=== PATIENT | female | born 1945 | race Caucasian/White ===

== ENCOUNTER 2016-07-20 11:28 | Emergency (ER) | payer MEDICARE, OTHER ==
[2016-07-20 11:42] VITALS: TEMP 98.3; BMI 39.2
[2016-07-20 11:54] LABS: AUTOMATED BASOPHIL 0.6 % (0-2); AUTOMATED MONOCYTE 8.6 % (3-10); AUTOMATED NEUTROPHIL 66.8 % (45-76); MPV 10.2 fL (7.4-10.4)
[2016-07-20 12:08] LABS: PARTIAL THROMB. TIME 25.4 SEC (22-35); PT-INR 0.9
[2016-07-20 12:14] LABS: BLOOD UREA NITROGEN 23 MG/DL (7-17); CALCIUM 9.5 MG/DL (8.4-10.2); CALCULATED OSMOLALITY 276 MOs/Kg (270-290); CHLORIDE 102 mEq/L (98-107); CPK TOTAL WITH POSSIBLE MB 65 IU/L (30-134); GLUCOSE 123 MG/DL (70-99); SODIUM LEVEL 141 mEq/L (137-146); TOTAL PROTEIN 7.6 G/DL (6.3-8.2)
--- NOTE | 2016-07-20 13:03 | DIRPT ---
CLINICAL DATA: Facial swelling, ulcerative lesion in the mouth. EXAM: CT MAXILLOFACIAL WITHOUT CONTRAST TECHNIQUE: Multidetector CT imaging of the maxillofacial structures was performed. Multiplanar CT image reconstructions were also generated. A small metallic BB was placed on the right mormon in order to reliably differentiate right from left. COMPARISON: None. FINDINGS: The globes are intact. The orbital bettencourt are intact. The orbital floors are intact. The maxilla is intact. The mandible is intact. The zygomatic arches are intact. The nasal septum is midline. There is no nasal bone fracture. The temporomandibular joints are normal. There is bilateral carotid artery atherosclerosis. There is degenerative disc disease with disc height loss at C5-6 and C6-7. There is 2 mm of anterolisthesis of C4 on C5 secondary to facet arthropathy. There is moderate left facet arthropathy at C4-5. The paranasal sinuses are clear. The visualized portions of the mastoid sinuses are well aerated. IMPRESSION: No acute facial abnormality. Electronically Signed By: Nina Del Angel On: 07/20/2016 13:00
[2016-07-20] MEDS ORDERED: LABETALOL 20 MG/4 ML SYRINGE IV ONE (13:07)
--- NOTE | 2016-07-20 13:12 | EDPRACDOC ---
- General Information Chief Complaint: Mouth Lesions Stated Complaint: mouth ulcers Hx of CA Time Seen by Provider: 07/20/16 12:42 Information Source: Patient Mode Of Arrival: Car Home Medications: Home Medications Aspirin [Aspirin EC] 81 mg PO DAILY 03/02/13 Multivitamin [Multiple Vitamins] 1 each PO DAILY 03/02/13 Atorvastatin Calcium 40 mg PO HS 04/29/14 Chlorthalidone 25 mg PO DAILY 04/29/14 Losartan Potassium [Cozaar] 25 mg PO DAILY 09/18/14 Metoprolol Tartrate [Lopressor] 50 mg PO BID 09/18/14 Allergies/Adverse Reactions: Allergies Allergy/AdvReac Type Severity Reaction Status Date / Time codeine Allergy Unknown Unknown Verified 07/20/16 11:37 iodine Allergy Unknown Unknown Verified 07/20/16 11:37 Sulfa (Sulfonamide Allergy Unknown Unknown Verified 07/20/16 11:37 Antibiotics) - History of Present Illness Onset: 4 weeks HPI: PT PRESENTS WITH LEFT FACIAL NUMBNESS, LEFT ORAL ULCER (WHICH HAS BEEN THERE FOR A WHILE). PT STATES SHE HAS A PMH OF CA AND IS WORRIED ABOUT THIS. PT HAS A HEADACHE AND IS HAVING HYPERTENSION. Sore Throat Symptoms: Denies: Pain, Muffled Voice, Hoarse, Secretion Difficulty , Other White Spots Location: Reports: Other (ULCERATION TO LEFT BUCCAL AREA) Relevant History of: Reports: Other (THROAT CA) Pain Severity: Reports: Mild Urinary Output: Normal Oral Intake: Normal Associated Signs and Symptoms: Reports: None ED Past Medical History - History Reviewed Yes Nurses notes reviewed and agree except as marked - Patient Medical History Cardiac History: Reports: Hypertension, Hypercholesterolemia GI/ History: Reports: Gastroesophageal Reflux, Ulcer Musculoskeletal History: Reports: Arthritis, Gout Psychological History: Reports: Anxiety. Denies: Substance Use Disorder Systemic History: Reports: Cancer (lung, throat, cervical) Surgical History: Reports: Hysterectomy, Other (throat surgery for laryngeal cancer) - Family Medical History Reports: Hypertension, Cancer, Stroke, Cardiac Disorders. Denies: Diabetes - Social Medical History Social History: Denies: Substance Use Disorder EDM Review of Systems - Review of Systems ROS Negative Except as Marked: Yes All systems reviewed and were negative except as marked - Physical Exam Constitutional: Alert Oriented to: Time, Person, Place Last recorded Vital Signs: Last Vital Signs Temp 98.3 F 07/20/16 11:37 Pulse 84 07/20/16 11:37 Resp 20 07/20/16 11:37 BP 219/91 H 07/20/16 11:37 Pulse Ox 94 07/20/16 11:37 Oxygen Pulse Oxygen Saturation 94 O2 Device Room Air Oxygen Flow Rate Fraction of Inspired Oxygen ( FIO2) - HEENT Head: Normal ( normocephalic) Eye Exam: Normal (PERRL, EOMI, Sclera white) Oropharynx: Other (ULCERATION TO LEFT BUCCAL AREA) Tympanic Membrane: Normal Nose: No Symptoms Reported (septum midline) Neck: Normal (FROM, trachea at midline) - Respiratory/Cardiovascular Respiratory: Normal - CTA (BBS clear to auscultation without adventitious sounds ) Cardiovascular: Normal (RRR without murmur, gallop or rub) - GI Auscultation: Normal (NABS) Palpation: Normal (Soft,No rebound or guarding, non distended) Tenderness: Non tender Avila's Sign: Negative Rectal Exam: Deferred - Musculoskeletal Back: Normal (Non-Tender) Extremities: Normal (Normal tone, Pulses 2+ No cyanosis or edema, FROM) - Integumentary Skin: Normal, Warm, Dry Lymphatics: Normal (no adenopathy) - Neurologic Memory Impaired: Normal Motor Function: Normal (Normal tone, Pulses 2+ No cyanosis or edema, FROM) Cranial Nerve: Normal (CN II-X11 intact sensation, strength 5/5) Cerebellar: Normal Mood Description: Normal Perception: Normal - Differential Diagnosis Other - Re-evaluation Re-evaluation 1 Re-evaluation Time: 14:25 (BP NOW 186/79, PT STATES SHE STILL HAS A HEADACHE. NO ACUTE DISTRESS NOTED) - Results 07/20/16 11:43 07/20/16 11:43 WBC 12.2 xk/uL (3.8-10.8) H 07/20/16 11:43 RBC 3.97 xM/uL (4.20-5.40) L 07/20/16 11:43 Hgb 12.3 g/dL (12.0-16.0) 07/20/16 11:43 Hct 37.2 % (36-47) 07/20/16 11:43 MCV 94 fL (81-99) 07/20/16 11:43 MCH 31.0 pg (27-32) 07/20/16 11:43 MCHC 33.1 g/dl (33-36) 07/20/16 11:43 RDW 14.3 % (11.5-14.5) 07/20/16 11:43 Plt Count 232 xk/uL (130-400) 07/20/16 11:43 MPV 10.2 fL (7.4-10.4) 07/20/16 11:43 Neut % (Auto) 66.8 % (45-76) 07/20/16 11:43 Lymph % (Auto) 22.0 % (17-44) 07/20/16 11:43 [place]gs % (Auto) 8.6 % (3-10) 07/20/16 11:43 Eos % (Auto) 2.0 % (0-5) 07/20/16 11:43 Baso % (Auto) 0.6 % (0-2) 07/20/16 11:43 Absolute Neuts (auto) 8.05 xk/uL (1.7-8.2) 07/20/16 11:43 Absolute Lymphs (auto) 2.68 xk/uL (0.65-4.75) 07/20/16 11:43 PT 9.6 SEC (9.2-11.2) 07/20/16 11:43 INR 0.9 07/20/16 11:43 APTT 25.4 SEC (22-35) 07/20/16 11:43 Sodium 141 mEq/L (137-146) 07/20/16 11:43 Potassium 4.0 mEq/L (3.5-5.1) 07/20/16 11:43 Chloride 102 mEq/L (98-107) 07/20/16 11:43 Carbon Dioxide 29 mMOL/L (22-33) 07/20/16 11:43 Anion Gap 14 mEq/L (8-16) 07/20/16 11:43 BUN 23 MG/DL (7-17) H 07/20/16 11:43 Creatinine 1.00 MG/DL (0.52-1.04) 07/20/16 11:43 Estimated GFR (MDRD) 55 mL/min (>=60) L 07/20/16 11:43 Glucose 123 MG/DL (70-99) H 07/20/16 11:43 Calculated Osmolality 276 MOs/Kg (270-290) 07/20/16 11:43 Calcium 9.5 MG/DL (8.4-10.2) 07/20/16 11:43 Total Bilirubin 0.8 MG/DL (0.2-1.3) 07/20/16 11:43 AST 23 IU/L (14-36) 07/20/16 11:43 ALT 35 IU/L (9-52) 07/20/16 11:43 Alkaline Phosphatase 142 IU/L (55-165) 07/20/16 11:43 Creatine Kinase 65 IU/L (30-134) 07/20/16 11:43 Troponin I < 0.01 ng/mL (<.04) 07/20/16 11:43 [id number] Pept 120 pg/mL (0-900) 07/20/16 11:43 Total Protein 7.6 G/DL (6.3-8.2) 07/20/16 11:43 Albumin 4.2 G/DL (3.5-5.0) 07/20/16 11:43 Lab Results 07/20/16 07/20/16 07/20/16 11:43 11:43 11:43 WBC 12.2 H RBC 3.97 L Hgb 12.3 Hct 37.2 MCV 94 MCH 31.0 MCHC 33.1 RDW 14.3 Plt Count 232 MPV 10.2 Neut % (Auto) 66.8 Lymph % (Auto) 22.0 Griggs % (Auto) 8.6 Eos % (Auto) 2.0 Baso % (Auto) 0.6 Absolute Neuts (auto) 8.05 Absolute Lymphs (auto) 2.68 PT 9.6 INR 0.9 APTT 25.4 Sodium 141 Potassium 4.0 Chloride 102 Carbon Dioxide 29 Anion Gap 14 BUN 23 H Creatinine 1.00 Estimated GFR (MDRD) 55 L Glucose 123 H Calculated Osmolality 276 Calcium 9.5 Total Bilirubin 0.8 AST 23 ALT 35 Alkaline Phosphatase 142 Creatine Kinase 65 Troponin I < 0.01 Jrn-[id number]-[id number] Pept 120 Total Protein 7.6 Albumin 4.2 - EKG EKG #1 EKG Time: 13:04 -: Yes EKG interpreted by me Rate: bpm: 80 [place]: Normal Rhythm: NSR Block: None Hypertrophy: None ST: Normal Decision Time to Discharge: 14:26 - Departure Disposition: Home Condition: Stable Final Diagnosis: Ulcer of mouth Hypertension Qualifiers: Hypertension type: essential hypertension Qualified Code(s): I10 - Essential ( primary) hypertension Instructions: Chronic Hypertension (ED), Canker Sores (ED) Education/Counseling Given To: Patient Education/Counseling Given Regarding: Diagnosis, Treatment, Prognosis, Follow Up Referrals: Antwan Schaeffer MD [Primary Care Provider] - One Week Noble Ruiz DO [Staff Physician] - One Week Additional Instructions: PLEASE CALL TOMORROW AND MAKE AN APPOINTMENT WITH DR RUIZ (ENT). FOLLOW UP WITH PCP THIS WEEK DUE TO HYPERTENSION. TAKE MEDICATIONS PRESCRIBED. RETURN TO THE ED FOR WORSENING SYMPTOMS OR CONCERNS.
[2016-07-20 13:25] LABS: LEUKOCYTES/URINE NEG (NEGATIVE); NITRITE/URINE NEG (NEGATIVE); URINE OCCULT BLOOD NEG (NEG/TRACE); WBC/URINE 0-2 (0-5)
[2016-07-20] MEDS ORDERED: ONDANSETRON HCL 4 MG/2 ML VIAL IV ONE (13:25)
[2016-07-20] MEDS ORDERED: MORPHINE 4 MG/ML INJECTION IV ONE (13:25)
--- NOTE | 2016-07-20 13:34 | DIRPT ---
CLINICAL DATA: Left-sided facial numbness EXAM: CT HEAD WITHOUT CONTRAST TECHNIQUE: Contiguous axial images were obtained from the base of the skull through the vertex without intravenous contrast. COMPARISON: 09/18/2014 FINDINGS: The bony calvarium is intact. Mild atrophic changes and chronic white matter ischemic changes are noted. No findings to suggest acute hemorrhage, acute infarction or space-occupying mass lesion are noted. IMPRESSION: Chronic atrophic and ischemic changes. No change from the prior study. Electronically Signed By: Samy Long M.D. On: 07/20/2016 13:31
--- NOTE | 2016-07-20 14:13 | DIRPT ---
CLINICAL DATA: Mouth lesions. History of cancer. EXAM: CHEST 2 VIEW COMPARISON: 05/05/2014 FINDINGS: The heart size and mediastinal contours are within normal limits. Both lungs are clear. The visualized skeletal structures are unremarkable. IMPRESSION: No active cardiopulmonary disease. Electronically Signed By: Nina Del Angel On: 07/20/2016 14:10
[2016-07-20] MEDS: HYDROmorphone 1 MG INJECTION IV ONE ×2 (14:36→14:38)
[2016-07-20 15:21] VITALS: BP 153/74; PULSE 84
== END 2016-07-20 15:20 | disposition home or self-care (01) ==
LOC: ED 11:28
DX: K12.1 Other forms of stomatitis (principal); I10 Essential (primary) hypertension; R20.0 Anesthesia of skin
CPT/HCPCS: 36415; 70450; 70486; 71020; 80053; 81001; 82550; 83880; 84484; 85025; 85610; 85730; 93005; 96374; 96375; 99284; A9270; J1170; J2270; J2405; J3490